=== PATIENT | male | born 1985 | race Caucasian/White ===

== ENCOUNTER 2024-02-20 06:10 | Day surgery (SDC) | payer BC ==
[~2024-02-20 06:10] MED LIST: CLINDAMYCIN-D5W 900 MG/50 ML*** 900 MG/50 ML BAG IV ONE; Lactated Ringers 1,000 ML IV ONE
[2024-02-20] MEDS ORDERED: Xylocaine 1% Vial 30 ML PF IJ ONE (06:29)
[2024-02-20] MEDS ORDERED: Marcaine Mpf 0.5% Vial 30 Ml ONE (06:29)
[2024-02-20 06:36] LABS: Hematocrit 44.5 % (40.1-51.0); Hemoglobin 15.5 g/dL (13.7-17.5); Mean Cell Volume 94.9 fL (79.0-92.2); Mean Corpuscular Hgb Concent. 34.8 g/dL (32.3-36.5); Mean Platelet Volume 9.5 fL (9.4-12.4); Platelet Count 181 x10^3/uL (163-337); Red Blood Count 4.69 x10^6/uL (4.63-6.08); Red Cell Distribution Width 12.1 % (11.6-14.4); White Blood Count 4.8 x10^3/uL (4.23-9.07)
[2024-02-20 06:43] VITALS: RESP 16; O2SAT 97
[2024-02-20 06:45] LABS: ALBUMIN 4.5 g/dL (3.5-5.0); ANION GAP 12.7 MEQ/L (5-15); BILIRUBIN,TOTAL 0.4 mg/dL (0.2-1.3); Calcium 9.6 mg/dL (8.4-10.2); Creatinine 1 0.89 mg/dL (0.66-1.25); EST GLOMERULAR FILTRATION RATE 111.8 ML/MIN; Total Protein 7.6 g/dL (6.3-8.2)
[2024-02-20] MEDS: Lactated Ringers 1,000 ML IV SCH (06:56)
[2024-02-20] MEDS: CLINDAMYCIN-D5W 900 MG/50 ML*** 900 MG/50 ML BAG IV SCH (06:56)
[2024-02-20] MEDS ORDERED: Versed 2 MG/2 ML Injection ONE (07:01)
[2024-02-20] MEDS ORDERED: SUBLIMAZE 100 MCG/2 ML ONE (07:01)
[2024-02-20] MEDS ORDERED: DIPRIVAN 200 MG/20 ML IV ONE (07:01)
--- NOTE | 2024-02-20 08:53 | XRAY ---
Indication: Right ankle surgery. Multiple bone biopsies. Intraoperative fluoroscopy provided for 34 seconds. 11 digital spot images submitted for interpretation demonstrates metallic localizer tips projecting over distal tibia, lateral malleolus, talus, and mid calcaneus. Correlate with intraoperative findings/report.
[2024-02-20 09:22] VITALS: BP 147/95; PULSE 59
[2024-02-20 09:32] VITALS: TEMP 97.6
--- NOTE | 2024-02-20 09:55 | XRAY ---
34 seconds of fluoroscopy was used in surgery for a right ankle surgery. Multiple bone biopsies.
--- NOTE | 2024-02-21 11:03 | OP ---
SURGERY DATE/TIME: 02/20/2024 9226-1391 PREOPERATIVE DIAGNOSES: 1) Osteomyelitis. 2) Open fracture right lower extremity, pilon sequelae with resultant malunion. POSTOPERATIVE DIAGNOSES: 1) Osteomyelitis. 2) Open fracture right lower extremity, pilon sequelae with resultant malunion. PROCEDURE: Trocar bone biopsy deep of tibia, talus, calcaneus and fibula, right lower extremity. SURGEON: Clive Tinajero DPM LICENSED LOAN OFFICER: None. ANESTHESIA: General. HEMOSTASIS: Pressure dressing. ESTIMATED BLOOD LOSS: Approximately 5 mL. MATERIALS: A 3-0 nylon. INJECTABLES: 20 mL of 1:1 mixture of 1% lidocaine plain and 0.5% bupivacaine plain injected in V block-type fashion to each of the biopsy sites. 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 This is a resultant injury that caused significant deformity to the leg, which was fixated. However, following fixation, he did develop infections that did run deep. Patient was required to be on IV antibiotics during this period of time and subsequently healed. 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 From that standpoint, patient wishes to proceed with surgical intervention at this time for correction. Because of the situation that he did have an open fracture with infection, we decided to proceed initially with a bone biopsy to determine the possibility for a septic union or driving osteomyelitis into his bone marrow cavity. From that standpoint, patient has been made aware of all the risks, complications and benefits of surgical intervention at this time, including but not limited to infection, hematoma, seroma, possibility of delayed wound healing, non-wound healing, possibility of failure of surgical intervention, possible need for IV antibiotics over an extended period of time during his healing process. That being said, patient is aware of all of these risks. Plenty of time was allowed for the patient to ask questions, which were answered to his apparent satisfaction. It is at this time he decided to proceed. DESCRIPTION OF PROCEDURE AND FINDINGS: Patient was brought into the operating room and placed on the operating room table in the supine position. At this time, general anesthesia was administered until patient was adequately sedated. The right lower extremity was prepped and draped in the typical sterile fashion and lowered onto the surgical field. At this time, under fluoroscopic guidance, a stab incision was made in an area of low likelihood of neurovascular compromise. This was made to the level of skin and subcutaneous. Following this, a curved mini hemostat was utilized to spread the tissue to the level of bone and a trocar bone biopsy was obtained from the distal tibia. Following this, the same procedure was carried out for the fibula, the talus and for the calcaneus. Once this was accomplished, copious amounts of sterile saline were utilized to flush the surgical sites. The bone biopsies were handed off the field for pathological assessment at this time. A 3-0 nylon was utilized in simple interrupted to coapt the skin edges. The sites were then covered with iodine, Band-Aids and a compression dressing. Patient was then reversed from anesthesia and returned to the postoperative anesthesia care unit with vital signs stable and vascular status intact. Patient handled the anesthesia, as well as the procedure, without significant complication. Postoperative orders as indicated in the patient's discharge chart.
== END 2024-02-20 09:32 | disposition home or self-care (01) ==
LOC: SDC 06:10
PROVIDERS: ATTEND Podiatrist Foot & Ankle Surgery
DX: M86.9 Osteomyelitis, unspecified (principal); S82.871D Displaced pilon fracture of right tibia, subsequent encounter for closed fracture with routine healing
CPT/HCPCS: 36415; 73610; 76000; 80053; 85027; J2250; J2704; J3010

== ENCOUNTER 2024-03-05 06:29 | Day surgery (SDC) | payer BC ==
[~2024-03-05 06:29] MED LIST changes: -CLINDAMYCIN-D5W 900 MG/50 ML*** 900 MG/50 ML BAG IV ONE; +CLINDAMYCIN-D5W 900 MG/50 ML*** 900 MG/50 ML BAG IV STA; -Lactated Ringers 1,000 ML IV ONE; +Lactated Ringers 1,000 ML IV SCH
[2024-03-05] MEDS ORDERED: Lactated Ringers 1,000 ML IV ONE ×2 (06:59→10:07)
[2024-03-05] MEDS ORDERED: CLINDAMYCIN-D5W 900 MG/50 ML*** 900 MG/50 ML BAG IV ONE (07:01)
[2024-03-05] MEDS: Lactated Ringers 1,000 ML IV SCH (07:04)
[2024-03-05] MEDS: CLINDAMYCIN-D5W 900 MG/50 ML*** 900 MG/50 ML BAG IV ONE (07:04)
[2024-03-05 07:10] LABS: Hematocrit 44.5 % (40.1-51.0); Hemoglobin 15.7 g/dL (13.7-17.5); Mean Cell Volume 92.5 fL (79.0-92.2); Mean Corpuscular Hemoglobin 32.6 pg (25.7-32.2); Mean Corpuscular Hgb Concent. 35.3 g/dL (32.3-36.5); Mean Platelet Volume 9.3 fL (9.4-12.4); Platelet Count 182 x10^3/uL (163-337); Red Blood Count 4.81 x10^6/uL (4.63-6.08); Red Cell Distribution Width 11.9 % (11.6-14.4); White Blood Count 4.7 x10^3/uL (4.23-9.07)
[2024-03-05] MEDS ORDERED: TRANEXAMIC 1,000 MG/100ML-NACL 1,000 MG/100 ML PIGGYBACK IV ONE (07:21)
[2024-03-05] MEDS: TRANEXAMIC 1,000 MG/100ML-NACL 1,000 MG/100 ML PIGGYBACK IV ONE (07:23)
[2024-03-05 07:26] LABS: ALBUMIN 4.5 g/dL (3.5-5.0); ANION GAP 13.2 MEQ/L (5-15); BILIRUBIN,TOTAL 1.1 mg/dL (0.2-1.3); Calcium 9.4 mg/dL (8.4-10.2); Creatinine 1 0.91 mg/dL (0.66-1.25); Potassium 4.2 mmol/L (3.5-5.1); Total Protein 7.6 g/dL (6.3-8.2)
[2024-03-05] MEDS ORDERED: SUBLIMAZE 100 MCG/2 ML ONE (07:49)
[2024-03-05] MEDS ORDERED: Versed 2 MG/2 ML Injection ONE (07:49)
[2024-03-05] MEDS ORDERED: DIPRIVAN 200 MG/20 ML IV ONE (07:49)
[2024-03-05] MEDS ORDERED: Xylocaine-Mpf 2% 5 Ml Vial ONE (07:49)
[2024-03-05] MEDS ORDERED: Marcaine 0.5%/Epinephrine 10 ML ONE (07:49)
[2024-03-05] MEDS ORDERED: XYLOCAINE 1% HCL 20 ML MDV ONE (08:09)
[2024-03-05] MEDS ORDERED: Marcaine Mpf 0.5% Vial 30 Ml ONE ×2 (08:09→08:25)
[2024-03-05] MEDS ORDERED: EXPAREL 133 MG/10 ML VIAL IJ ONE (08:25)
[2024-03-05] MEDS ORDERED: ROCURONIUM BROMIDE IV ONE (08:52)
[2024-03-05] MEDS ORDERED: Zofran 4 MG/2 ML VIAL ONE (09:24)
[2024-03-05] MEDS ORDERED: BRIDION 200MG/2ML IV ONE (09:24)
[2024-03-05] MEDS ORDERED: Decadron 4 MG INJ ONE (09:24)
[2024-03-05] MEDS ORDERED: TORAdol 30 mg Injection ONE (09:24)
[2024-03-05] MEDS ORDERED: OFIRMEV 100 ML IV ONE (10:09)
--- NOTE | 2024-03-05 14:09 | XRAY ---
Indication: Right anterior ankle arthrodesis, tibial osteotomy, possible bone debridement, and fibular osteotomy. Intraoperative fluoroscopy provided for 12 minutes 31 seconds. 29 digital spot images submitted for interpretation ultimately demonstrates talotibial arthrodesis with 3 intact traversing screws. Also osteotomy distal fibula. Correlate with intraoperative findings/report.
[2024-03-05] MEDS ORDERED: MORPHINE SULFATE 2 MG INJ ONE (15:26)
[2024-03-05 16:56] VITALS: RESP 18; O2SAT 99
--- NOTE | 2024-03-05 17:11 | XRAY ---
Twelve minute and 31 seconds of fluoroscopy was used in surgery for a right anterior ankle arthrodesis, tibial osteotomy, possible bone debridement, and fibular osteotomy.
[2024-03-05 17:45] VITALS: BP 144/82; PULSE 83; TEMP 96.5
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
== END 2024-03-05 17:55 | disposition home or self-care (01) ==
LOC: SDC 06:29
PROVIDERS: ATTEND Podiatrist Foot & Ankle Surgery
DX: M19.071 Primary osteoarthritis, right ankle and foot (principal); M21.861 Other specified acquired deformities of right lower leg; M24.571 Contracture, right ankle; R26.2 Difficulty in walking, not elsewhere classified
CPT/HCPCS: 27625; 27709; 27870; 36415; 73610; 76000; 76937; 80053; 85027; C1713; C1762; C1776; J1100; J1885; J2250; J2270; J2405; J2704; J3010

== ENCOUNTER 2024-05-28 05:45 | Day surgery (SDC) | payer BC ==
[2024-05-28 06:04] LABS: Absolute Neutrophil Ct (ANC) 3.75 x10^3/uL (1.78-5.38); BASOPHIL % 1.1 % (0.2-1.2); Basophil (Absolute #) 0.08 x10^3/uL (0.01-0.08); Eosinophil % 5.5 % (0.8-7.0); Eosinophil (Absolute #) 0.39 x10^3/uL (0.04-0.54); Hematocrit 43.1 % (40.1-51.0); Hemoglobin 14.6 g/dL (13.7-17.5); IMMATURE GRAN # 0.02 x10^3u/L (0.001-0.031); IMMATURE GRAN % 0.3 % (0.001-0.429); Lymphocyte (Absolute #) 2.06 x10^3/uL (1.32-3.57); Mean Cell Volume 89.6 fL (79.0-92.2); Mean Corpuscular Hemoglobin 30.4 pg (25.7-32.2); Mean Corpuscular Hgb Concent. 33.9 g/dL (32.3-36.5); Mean Platelet Volume 9.7 fL (9.4-12.4); Monocyte (Absolute #) 0.81 x10^3/uL (0.30-0.82); Monocytes % 11.4 % (5.3-12.2); Neutrophil % 52.7 % (34.0-67.9); Platelet Count 229 x10^3/uL (163-337); Red Blood Count 4.81 x10^6/uL (4.63-6.08); Red Cell Distribution Width 12.2 % (11.6-14.4); White Blood Count 7.1 x10^3/uL (4.23-9.07)
[2024-05-28] MEDS: Lactated Ringers 1,000 ML IV SCH (06:16)
[2024-05-28] MEDS ORDERED: Marcaine Mpf 0.5% Vial 30 Ml ONE (06:31)
[2024-05-28] MEDS ORDERED: Xylocaine 1% Vial 30 ML PF IJ ONE (06:32)
[2024-05-28 06:41] LABS: ALBUMIN 4.3 g/dL (3.5-5.0); ANION GAP 7.9 MEQ/L (5-15); BILIRUBIN,TOTAL 0.5 mg/dL (0.2-1.3); Creatinine 1 0.92 mg/dL (0.66-1.25); EST GLOMERULAR FILTRATION RATE 108.5 ML/MIN; Potassium 4.3 mmol/L (3.5-5.1); Total Protein 7.5 g/dL (6.3-8.2)
[2024-05-28] MEDS ORDERED: Versed 2 MG/2 ML Injection ONE (06:48)
[2024-05-28] MEDS ORDERED: SUBLIMAZE 100 MCG/2 ML ONE (06:48)
[2024-05-28] MEDS ORDERED: Xylocaine-Mpf 2% 5 Ml Vial ONE (06:48)
[2024-05-28] MEDS ORDERED: propofoL IV ONE (06:48)
[2024-05-28] MEDS ORDERED: Tobramycin 1.2 GM Injection IJ ONE (07:26)
[2024-05-28] MEDS ORDERED: VANCOCIN INJECTION IV ONE (07:26)
[2024-05-28 08:20] VITALS: BP 114/85
--- NOTE | 2024-05-28 08:42 | XRAY ---
Indication: Incision and drainage right ankle. Hardware removal. Bone biopsy. Intraoperative fluoroscopy provided for 59 seconds. 7 digital spot images submitted for interpretation ultimately demonstrates removal of 1 of 2 short talotibial screws. Also bone biopsy needle tip projects over distal tibia medially. Correlate with intraoperative findings/report.
[2024-05-28 08:47] VITALS: PULSE 63; RESP 18; TEMP 97; O2SAT 100
--- NOTE | 2024-05-28 14:17 | XRAY ---
59 seconds of fluoroscopy was used in surgery for an incision and drainage right ankle. Hardware removal. Bone biopsy.
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
== END 2024-05-28 08:52 | disposition home or self-care (01) ==
LOC: SDC 05:45
PROVIDERS: ATTEND Podiatrist Foot & Ankle Surgery
DX: M86.171 Other acute osteomyelitis, right ankle and foot (principal); T84.84XA Pain due to internal orthopedic prosthetic devices, implants and grafts, initial encounter; M79.671 Pain in right foot; L02.415 Cutaneous abscess of right lower limb
CPT/HCPCS: 11981; 20680; 28005; 36415; 73610; 76000; 80053; 85025; 87070; 87075; A6260; C1713; J2250; J2704; J3010; J3260; J3370

== ENCOUNTER 2024-07-16 06:08 | Day surgery (SDC) | payer BC ==
[~2024-07-16 06:08] MED LIST changes: +CLINDAMYCIN-D5W 900 MG/50 ML*** 900 MG/50 ML BAG IV ONE; -CLINDAMYCIN-D5W 900 MG/50 ML*** 900 MG/50 ML BAG IV STA; +Decadron 4 MG ONE; +Lactated Ringers 1,000 ML IV ONE; +NEURONTIN ONE; +TYLENOL EXTRA STRENGTH 500 MG ONE; +celeBREX 100 MG ONE
[2024-07-16] MEDS: Lactated Ringers 1,000 ML IV SCH (06:15)
[2024-07-16] MEDS: Decadron 4 MG PO ONE (06:15)
[2024-07-16] MEDS: CLINDAMYCIN-D5W 900 MG/50 ML*** 900 MG/50 ML BAG IV ONE (06:15)
[2024-07-16] MEDS: TYLENOL EXTRA STRENGTH 500 MG PO ONE (06:15)
[2024-07-16] MEDS: celeBREX 100 MG PO ONE (06:15)
[2024-07-16] MEDS: NEURONTIN PO ONE (06:15)
[2024-07-16] MEDS ORDERED: Marcaine Mpf 0.5% Vial 30 Ml ONE ×2 (06:34→07:23)
[2024-07-16] MEDS ORDERED: Xylocaine 1% Vial 30 ML PF IJ ONE (06:35)
[2024-07-16] MEDS ORDERED: Lactated Ringers 1,000 ML IV ONE (06:35)
[2024-07-16 06:37] LABS: Hematocrit 42.9 % (40.1-51.0); Hemoglobin 14.4 g/dL (13.7-17.5); Mean Cell Volume 90.1 fL (79.0-92.2); Mean Corpuscular Hemoglobin 30.3 pg (25.7-32.2); Mean Corpuscular Hgb Concent. 33.6 g/dL (32.3-36.5); Platelet Count 218 x10^3/uL (163-337); Red Blood Count 4.76 x10^6/uL (4.63-6.08); Red Cell Distribution Width 13.1 % (11.6-14.4); White Blood Count 6.2 x10^3/uL (4.23-9.07)
[2024-07-16] MEDS ORDERED: Zofran 4 MG/2 ML VIAL ONE (06:46)
[2024-07-16] MEDS ORDERED: Versed 2 MG/2 ML Injection ONE (06:46)
[2024-07-16] MEDS ORDERED: SUBLIMAZE 100 MCG/2 ML ONE (06:46)
[2024-07-16] MEDS ORDERED: Xylocaine-Mpf 2% 5 Ml Vial ONE (06:46)
[2024-07-16 06:55] LABS: ALBUMIN 4.3 g/dL (3.5-5.0); ANION GAP 13.5 MEQ/L (5-15); BILIRUBIN,TOTAL 0.6 mg/dL (0.2-1.3); Calcium 9.1 mg/dL (8.4-10.2); Creatinine 1 0.79 mg/dL (0.66-1.25); EST GLOMERULAR FILTRATION RATE 115.9 ML/MIN; Potassium 4.2 mmol/L (3.5-5.1); Total Protein 7.7 g/dL (6.3-8.2)
[2024-07-16] MEDS ORDERED: Sodium Chloride 0.9% 1000 ML 1,000 ML ONE (07:23)
[2024-07-16] MEDS ORDERED: GARAMYCIN INJ ONE (07:30)
--- NOTE | 2024-07-16 09:09 | XRAY ---
Indication: Right ankle hardware removal and bone biopsy. Intraoperative fluoroscopy provided for 3 minutes 55 seconds. 7 digital spot images submitted for interpretation demonstrates removal of 2 talotibial arthrodesis screws. Bone biopsy needle tip projects over anterior talus. Correlate with intraoperative findings/report.
[2024-07-16 09:18] VITALS: RESP 16
[2024-07-16 09:30] VITALS: BP 147/92; PULSE 65; TEMP 97.8; O2SAT 98
[2024-07-16] MEDS ORDERED: propofoL IV ONE (09:31)
--- NOTE | 2024-07-16 15:01 | XRAY ---
Three minutes and 55 seconds of fluoroscopy was used in surgery for a right ankle hardware removal and bone biopsy.
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
== END 2024-07-16 09:50 | disposition home or self-care (01) ==
LOC: SDC 06:08
PROVIDERS: ATTEND Podiatrist Foot & Ankle Surgery
DX: M86.9 Osteomyelitis, unspecified (principal); T84.84XA Pain due to internal orthopedic prosthetic devices, implants and grafts, initial encounter; Z98.1 Arthrodesis status; M25.571 Pain in right ankle and joints of right foot; L02.415 Cutaneous abscess of right lower limb
CPT/HCPCS: 20680; 27607; 36415; 73610; 76000; 80053; 85027; 87046; 87070; 87075; 87116; 87205; 87206; C1763; C7500; 87254; J1580; J2250; J2405; J2704; J3010; A9270-GY